=== PATIENT | male | born 1940 | race Caucasian/White ===

== ENCOUNTER 2025-09-09 11:19 | Inpatient (IN) | payer OTHER ==
[~2025-09-09] VITALS: Ht 182.9 cm; Wt 97.5 kg
[~2025-09-09 11:19] MED LIST: CELEBREX100 MG PO; KEFLEX500 MG PO; PANTOPRAZOLE SO40 MG; PENTOXIFYLLINE400 MG; SIMVASTATIN20 MG; TAMS0.4C; TRAMADOL HCL50 MG PO
--- NOTE | 2025-09-09 11:25 | NUR ---
SE RRECIBE PACIENTE EN JESSICA POR PERSONAL DE AMBULANCIA EN COMPANIA POR EDWIN GALICIA. PACIENTE ALERTA Y ORIENTADO VERBALIZA SER REFERIDO DESDE OFICINA MEDICA Y VERBALIZA TENER FRACTURA EN AMBAS RODILLAS. SE OBERVA HEMAROMA EN AMBAS PIERNAS Y EQUIMOSIS EN AMBOS BRAZOS.SE APUL SIGNOS VITALES Y PACIENTE SE ACOMODA EN CAMA. SE EDUCA SOBRE NORMAS DE ER MIENTRAS PERMANECE EN ESPERA SORBRE EVALUACION MEDICA.
--- NOTE | 2025-09-09 12:12 | NUR ---
SE REALIZA LAB Y SE ORIENTA PTE QUIEN REFIERE ENTENDER Y ACEPTAR.
[2025-09-09 12:26] LABS: BASO % 0.2 % (0.1-1.2); EOS # 0.03 (0.04-0.54); EOS % 0.2 % (0.7-7.0); LYMPH # 1.64 (1.18-3.74); LYMPH % 12.4 % (19.3-53.1); MEAN PLATELET VOLUME 11.10 fl (9.4-12.4); MONO # 1.04 (0.24-0.82); MONO % 7.9 % (4.7-12.5); NEUT # 10.27 (1.56-6.13); NEUT % 77.6 % (34.0-71.1); RED CELL DISTRIBUTION WIDTH 13.1 % (11.6-14.4)
[2025-09-09 12:52] LABS: ALT/SGPT 33.0 U/L (12-78); AST/SGOT 40.0 U/L (15-37); BILIRUBIN TOTAL 1.22 mg/dL (0.3-1.2); BUN CREA RATIO 22.0 (7.0-25.0); CREATININE SERUM 1.11 mg/dL (0.70-1.30); GFR 62.66; GLOBULINA 2.9 G/DL (2.4-3.5); GLUCOSE FASTING 101.0 mg/dL (65-100); OSMOLALITY SERUM 284.0 MOSM/KG (275-295)
[2025-09-09] MEDS ORDERED: ONDANSETRON HCL 4 MG in 0.9 % SODIUM CHLORIDE 50 ML IV PRN (13:30)
[2025-09-09] MEDS ORDERED: 0.9 % SODIUM CHLORIDE 1,000 ML IV SCH (13:30)
[2025-09-09] MEDS ORDERED: CEFAZOLIN SODIUM 1,000 MG VIAL IV ONE (13:30)
[2025-09-09] MEDS ORDERED: MORPHINE SULFATE 2 MG/ML SYRINGE IV PRN (13:30)
[2025-09-09] MEDS ORDERED: TAMSULOSIN HCL 0.4 MG CAP PO SCH (13:40)
[2025-09-09] MEDS ORDERED: ATORVASTATIN CALCIUM 20 MG TABLET PO SCH (13:40)
[2025-09-09] MEDS ORDERED: ACETAMINOPHEN 325 MG TABLET PO PRN (13:45)
[2025-09-09] MEDS ORDERED: ACETAMINOPHEN 500 MG GEL..CAP PO PRN (14:15)
[2025-09-09 14:42] LABS: INR 1.04
[2025-09-09 18:25] VITALS: BP 152/67; O2SAT 96
[2025-09-09 22:37] VITALS: BP 127/59; O2SAT 98
[2025-09-10 00:30] VITALS: BP 139/71; O2SAT 100
[2025-09-10] MEDS ORDERED: ENALAPRILAT DIHYDRATE 1.25 MG/ML VIAL IV PRN (07:45)
[2025-09-10] MEDS ORDERED: CEFAZOLIN SODIUM 1,000 MG VIAL IV STA (07:55)
[2025-09-10] MEDS ORDERED: MORPHINE SULFATE 4 MG/ML CARTRIDGE IV PRN ×2 (07:59→22:00)
[2025-09-10] MEDS ORDERED: RINGERS SOLUTION,LACTATED 1,000 ML IV SCH (08:00)
[2025-09-10 08:23] VITALS: BP 175/70; O2SAT 97
[2025-09-10] MEDS ORDERED: PANTOPRAZOLE SODIUM 40 MG/VIAL VIAL IV PUSH SCH (09:00)
[2025-09-10] MEDS ORDERED: CEFAZOLIN SODIUM 1,000 MG VIAL IV SCH (17:00)
[2025-09-10 17:03] VITALS: BP 152/72; O2SAT 98
[2025-09-10] MEDS ORDERED: OxyCODONE HCL 5 MG TABLET (ROXICODONE) PO PRN (22:00)
[2025-09-10] MEDS ORDERED: SODIUM CHLORIDE 0.45 % 1,000 ML IV SCH (22:00)
[2025-09-10] MEDS ORDERED: ONDANSETRON HCL 2 MG/ML VIAL IV PRN (22:00)
[2025-09-11] MEDS ORDERED: ACETAMINOPHEN 500 MG GEL..CAP PO SCH
[2025-09-11] MEDS ORDERED: GABAPENTIN 300 MG CAPSULE PO SCH (01:00)
[2025-09-11] MEDS ORDERED: CEFAZOLIN SODIUM 1,000 MG VIAL IV SCH (01:00)
[2025-09-11 04:15] VITALS: BP 122/68; O2SAT 94
[2025-09-11 08:23] VITALS: BP 129/67; O2SAT 94
[2025-09-11] MEDS ORDERED: SENNOSIDES 1 TAB TABLET PO SCH (09:00)
[2025-09-11] MEDS ORDERED: BETAMETHASONE ACETATE,SOD PHOS 30 MG/5 ML ML IJ NR (09:00)
[2025-09-11] MEDS ORDERED: APIXABAN 2.5 MG TABLET PO SCH (09:00)
[2025-09-11] MEDS ORDERED: LIDOCAINE HCL 1% 10ML VIAL IJ NR (09:00)
[2025-09-11 14:48] LABS: BASO % 0.3 % (0.1-1.2); EOS # 0.22 (0.04-0.54); EOS % 1.5 % (0.7-7.0); LYMPH # 1.58 (1.18-3.74); LYMPH % 10.8 % (19.3-53.1); MEAN PLATELET VOLUME 10.60 fl (9.4-12.4); MONO # 1.27 (0.24-0.82); MONO % 8.7 % (4.7-12.5); NEUT # 11.23 (1.56-6.13); NEUT % 76.9 % (34.0-71.1); RED CELL DISTRIBUTION WIDTH 13.2 % (11.6-14.4)
[2025-09-12 00:30] VITALS: BP 139/66; O2SAT 95
[2025-09-12 07:39] LABS: BASO % 0.4 % (0.1-1.2); EOS # 0.35 (0.04-0.54); EOS % 2.5 % (0.7-7.0); LYMPH # 1.56 (1.18-3.74); LYMPH % 11.2 % (19.3-53.1); MEAN PLATELET VOLUME 11.20 fl (9.4-12.4); MONO # 1.57 (0.24-0.82); MONO % 11.3 % (4.7-12.5); NEUT # 10.14 (1.56-6.13); NEUT % 72.8 % (34.0-71.1); RED CELL DISTRIBUTION WIDTH 13.1 % (11.6-14.4)
[2025-09-12 07:46] VITALS: BP 153/73; O2SAT 95
[2025-09-12] MEDS ORDERED: TAMS0.4C PO (08:47)
[2025-09-12] MEDS ORDERED: ELIQUIS2.5 MG PO (08:47)
[2025-09-12] MEDS ORDERED: LIPITOR20 MG PO (08:47)
[2025-09-12] MEDS ORDERED: DUI500 PO (08:47)
[2025-09-12] MEDS ORDERED: GABAPENTIN300 MG PO (08:48)
[2025-09-12] MEDS ORDERED: CELEBREX100 MG PO (08:48)
[2025-09-12] MEDS ORDERED: TRAMADOL HCL50 MG PO (08:48)
[2025-09-12] MEDS ORDERED: SENOKOT8.6 M1 PO (08:49)
[2025-09-12] MEDS ORDERED: PANTOPRAZOLE SO40 MG PO (08:49)
[2025-09-12] MEDS ORDERED: PANTOPRAZOLE SODIUM 40 MG TABLET.DR PO SCH (09:00)
== END 2025-09-12 17:16 | disposition home or self-care (01) | DRG 464 ==
LOC: ER 11:19 → SEC-K 14:13 → SURG 14:13
PROVIDERS: General Practice; Orthopaedic Surgery; ADMIT Internal Medicine; ATTEND Internal Medicine
PROC: 0LQM0ZZ Repair Left Upper Leg Tendon, Open Approach (ICD-10-PCS; 2025-09-10)
PROC: 0LQL0ZZ Repair Right Upper Leg Tendon, Open Approach (ICD-10-PCS; 2025-09-10)
PROC: 0YU Anatomical Regions, Lower Extremities, Supplement (ICD-10-PCS; 2025-09-10)
PROC: 0YU90KZ Supplement Right Lower Extremity with Nonautologous Tissue Substitute, Open Approach (ICD-10-PCS; 2025-09-10)
PROC: 0JBM0ZZ Excision of Left Upper Leg Subcutaneous Tissue and Fascia, Open Approach (ICD-10-PCS; 2025-09-10)
PROC: 0JBL0ZZ Excision of Right Upper Leg Subcutaneous Tissue and Fascia, Open Approach (ICD-10-PCS; principal; 2025-09-10 20:00)
DX: S76.112A Strain of left quadriceps muscle, fascia and tendon, initial encounter (principal); M25.062 Hemarthrosis, left knee; S82.092A Other fracture of left patella, initial encounter for closed fracture; S76.111A Strain of right quadriceps muscle, fascia and tendon, initial encounter; W13.3XXA Fall through floor, initial encounter; Y92.89 Other specified places as the place of occurrence of the external cause